=== PATIENT | male | born 1995 | race Caucasian/White ===

== ENCOUNTER 2019-05-15 10:44 | Emergency (ER) | payer OTHER ==
[~2019-05-15] VITALS: Ht 185.4 cm; Wt 95.0 kg
[2019-05-15] MEDS ORDERED: TETANUS, DIPHTHERIA, PERTUSSIS VAC/PF 0.5ML (>7YR OLD) IM ONE (11:30)
[2019-05-15] MEDS ORDERED: CLINDAMYCIN 600 MG in DEXTROSE 5% WATER 50 ML IV ONE (12:45)
[2019-05-15] MEDS ORDERED: CLINDAMYCIN 600MG PREMIX 50 ML IV ONE (13:30)
[2019-05-15 14:51] VITALS: BP 123/85
== END 2019-05-15 14:52 | disposition home or self-care (01) ==
LOC: ER 10:58
DX: S02.609A Fracture of mandible, unspecified, initial encounter for closed fracture (principal); Y08.89XA Assault by other specified means, initial encounter; Y93.89 Activity, other specified; Y92.89 Other specified places as the place of occurrence of the external cause; Y99.8 Other external cause status
CPT/HCPCS: 70450; 70486; 90715; 96365; 99284; J3490; J7060

== ENCOUNTER 2021-12-28 01:52 | Emergency (ER) | payer OTHER ==
[~2021-12-28] VITALS: Ht 185.4 cm; Wt 93.0 kg
[2021-12-28 01:56] VITALS: BP 137/87
[2021-12-28] MEDS ORDERED: IBUPROFEN 600MG TABLET PO STA (04:32)
[2021-12-28] MEDS ORDERED: NAPR-681 PO (06:02)
== END 2021-12-28 06:40 | disposition home or self-care (01) ==
LOC: ER 01:52
DX: S01.412A Laceration without foreign body of left cheek and temporomandibular area, initial encounter (principal); S00.03XA Contusion of scalp, initial encounter; S10.83XA Contusion of other specified part of neck, initial encounter; S01.511A Laceration without foreign body of lip, initial encounter; R03.0 Elevated blood-pressure reading, without diagnosis of hypertension; Y04.2XXA Assault by strike against or bumped into by another person, initial encounter; Y93.89 Activity, other specified; Y92.89 Other specified places as the place of occurrence of the external cause
CPT/HCPCS: 70486; 99284